=== PATIENT | female | born 1980 | race Caucasian/White ===

== ENCOUNTER 2017-10-15 17:25 | Emergency (ER) | payer SELFPAY ==
[~2017-10-15] VITALS: Ht 167.6 cm; Wt 53.9 kg
[2017-10-15 17:33] VITALS: BP 126/77
[2017-10-15 17:57] LABS: HCG UR SG 1.025 (1.003-1.030); MICROSCOPIC NOT IND
[2017-10-15 17:58] LABS: CULTURE INDICATED? NO
== END 2017-10-15 18:40 | disposition home or self-care (01) ==
LOC: ED 18:36
DX: R10.30 Lower abdominal pain, unspecified (principal); R30.0 Dysuria; R11.0 Nausea
CPT/HCPCS: 81003; 81025; 99284

== ENCOUNTER 2019-10-30 14:55 | Emergency (ER) | payer SELFPAY ==
[~2019-10-30] VITALS: Ht 167.6 cm; Wt 58.5 kg
[2019-10-30 14:57] VITALS: BP 138/84
--- NOTE | 2019-10-30 15:38 | NUR ---
XR NEG. GIVEN ICE PACK.
== END 2019-10-30 16:15 | disposition home or self-care (01) ==
LOC: ED 16:02
DX: S60.222A Contusion of left hand, initial encounter (principal); W23.0XXA Caught, crushed, jammed, or pinched between moving objects, initial encounter; Y93.89 Activity, other specified; Y92.89 Other specified places as the place of occurrence of the external cause; Y99.8 Other external cause status
CPT/HCPCS: 29125; 99283